=== PATIENT | male | born 1960 | race African-American/Black ===

== ENCOUNTER 2017-04-17 09:53 | Emergency (ER) | payer OTHER ==
[2017-04-17 09:58] VITALS: BP 151/96; PULSE 72; TEMP 97.7; BMI 27.0
[2017-04-17 10:35] LABS: BASOPHIL 0.8 % (0-2.0); MCH 27.6 pg (25.7-33.7); MCHC 34.4 g/dl (32.0-35.9); MEAN CELL VOLUME 80.3 fl (80-96); MEAN PLT VOLUME 7.8 fl (7.5-11.1); NEUTROPHILS 50.7 % (42.8-82.8); PLATELET COUNT 284 K/MM3 (134-434); RDW 14.5 % (11.9-15.9); WHITE BLOOD COUNT 5.7 K/mm3 (4.0-10.0)
[2017-04-17 10:56] LABS: URINE APPEARANCE CLEAR; URINE BILIRUBIN NEGATIVE (NEGATIVE); URINE BLOOD NEGATIVE (NEGATIVE); URINE COLOR STRAW; URINE GLUCOSE (UA) NEGATIVE (NEGATIVE); URINE KETONE NEGATIVE (NEGATIVE); URINE LEUK ESTERASE NEGATIVE (NEGATIVE); URINE NITRITE NEGATIVE (NEGATIVE); URINE PROTEIN NEGATIVE (NEGATIVE); URINE UROBILINOGEN NEGATIVE E.U./dl (0.2-1.0)
--- NOTE | 2017-04-17 10:59 | EKG ---
Test Reason : Blood Pressure : / mmHG Vent. Rate : 072 BPM Atrial Rate : 072 BPM P-R Int : 170 ms QRS Dur : 098 ms QT Int : 380 ms P-R-T Axes : 062 033 035 degrees QTc Int : 416 ms NORMAL SINUS RHYTHM WITH SINUS ARRHYTHMIA POSSIBLE LEFT ATRIAL ENLARGEMENT LEFT VENTRICULAR HYPERTROPHY ABNORMAL ECG WHEN COMPARED WITH ECG OF 24-DEC-2010 10:44, NO SIGNIFICANT CHANGE WAS FOUND Confirmed by MD TREMAYNE, MARY ([id number]) on 04/17/2017 10:59:08 AM Referred By: Confirmed By:MARY CASPER MD
--- NOTE | 2017-04-17 11:07 | PDOC ---
History of Present Illness - General History Source: Patient Exam Limitations: No Limitations - History of Present Illness Initial Comments: 04/17/17 11:20 The patient is a 57 year old male with a significant past medical history of borderline hypertension who presents to the ED with complaints of chest pain for 3 days and a genital rash. The patient reports an onset of intermittent right sided chest pain that lasts for several seconds before residing while he was at work. He reports slight left sided chest pain associated with present symptoms. Patient notes he developed a genital rash on his penis after developing chest pain. He denies penile discharge, pain or swelling. Patient states his last sexual encounter was a month ago with an old friend and he was wearing protection. Patient reports he is not regularly sexually active and admits to not having sex for several months before his last sexual encounter. Denies fevers or chills. Denies shortness of breath or palpitations. Denies nausea, vomiting, or diarrhea. Denies dysuria, frequency, urgency or change in urination. Denies any other symptoms. Social hx: The patient works as a security lead. Denies alcohol, tobacco or drug use. <Autumn Padilla - Last Filed: 04/17/17 11:21> - General History Source: Patient Exam Limitations: No Limitations <Rhett Salgado - Last Filed: 04/17/17 11:41> - General Chief Complaint: Chest Pain Stated Complaint: CHEST PAIN/RASH Time Seen by Provider: 04/17/17 10:11 Past History <Autumn Padilla - Last Filed: 04/17/17 11:21> - Past Medical History HTN: Yes - Surgical History Orthopedic Surgery: Yes (LEFT ROTATOR CUFF SX) - Psycho/Social/Smoking Cessation Hx Anxiety: No Suicidal Ideation: No Smoking Status: No Smoking History: Never smoked Number of Cigarettes Smoked Daily: 0 Hx Alcohol Use: No Drug/Substance Use Hx: No Substance Use Type: None Hx Substance Use Treatment: No <Rhett Salgado - Last Filed: 04/17/17 11:41> - Past Medical History Allergies/Adverse Reactions: Allergies Allergy/AdvReac Type Severity Reaction Status Date / Time No Known Drug Allergies Allergy Verified 04/17/17 09:58 Home Medications: Ambulatory Orders NK [No Known Home Medication] 04/17/17 Review of Systems - Review of Systems Able to Perform ROS?: Yes Comments:: 04/17/17 11:21 GENERAL/CONSTITUTIONAL: No fever or chills. No weakness. HEAD, EYES, EARS, NOSE AND THROAT: No change in vision. No ear pain or discharge. No sore throat. CARDIOVASCULAR: + chest pain. No shortness of breath. RESPIRATORY: No cough, wheezing, or hemoptysis. GASTROINTESTINAL: No nausea, vomiting, diarrhea or constipation. GENITOURINARY: + genital rash. No dysuria, frequency, or change in urination. MUSCULOSKELETAL: No joint or muscle swelling or pain. No neck or back pain. NEUROLOGIC: No headache, vertigo, loss of consciousness, or change in strength/ sensation. ENDOCRINE: No increased thirst. No abnormal weight change. HEMATOLOGIC/LYMPHATIC: No anemia, easy bleeding, or history of blood clots. ALLERGIC/IMMUNOLOGIC: No hives or skin allergy. All Other Systems: Reviewed and Negative <Autumn Padilla - Last Filed: 04/17/17 11:21> *Physical Exam - Vital Signs Last Vital Signs Temp Pulse Resp BP Pulse Ox 97.7 F 72 20 151/96 99 04/17/17 09:55 04/17/17 09:55 04/17/17 09:55 04/17/17 09:55 04/17/17 09:55 - Physical Exam Comments: 04/17/17 11:21 GENERAL: Awake, alert, and fully oriented, in no acute distress HEAD: No signs of trauma EYES: PERRLA, EOMI, sclera anicteric, conjunctiva clear ENT: Auricles normal inspection, hearing grossly normal, nares patent, oropharynx clear without exudates. Moist mucosa NECK: Normal ROM, supple, no lymphadenopathy, JVD, or masses LUNGS: Breath sounds equal, clear to auscultation bilaterally. No wheezes, and no crackles HEART: Regular rate and rhythm, normal S1 and S2, no murmurs, rubs or gallops ABDOMEN: Soft, nontender, normoactive bowel sounds. No guarding, no rebound. No masses GENITOURINARY: + Small painless skin ulceration along the distal tip of the penis no erythema, drainage or testicular tenderness EXTREMITIES: Normal range of motion, no edema. No clubbing or cyanosis. No cords, erythema, or tenderness NEUROLOGICAL: Cranial nerves II through XII grossly intact. Normal speech, normal gait SKIN: Warm, Dry, normal turgor, no lesions noted. <Autumn Padilla - Last Filed: 04/17/17 11:21> - Vital Signs Last Vital Signs Temp Pulse Resp BP Pulse Ox 97.7 F 72 20 151/96 99 04/17/17 09:55 04/17/17 09:55 04/17/17 09:55 04/17/17 09:55 04/17/17 09:55 <Rhett Salgado - Last Filed: 04/17/17 11:41> Heart Score/ECG Review #1 ECG reviewed & interpreted by me at: 10:10 04/17/17 11:04 Vital Signs Temp Pulse Resp BP Pulse Ox 97.7 F 72 20 151/96 99 04/17/17 09:55 04/17/17 09:55 04/17/17 09:55 04/17/17 09:55 04/17/17 09:55 NSR 72, LVH, no std/julia, T wave flat III, normal axis, normal intervals, QTC 416 msec <Rhett Salgado - Last Filed: 04/17/17 11:41> ED Treatment Course - LABORATORY CBC & Chemistry Diagram: 04/17/17 10:10 04/17/17 10:10 - ADDITIONAL ORDERS Additional order review: Laboratory Results 04/17/17 04/17/17 10:10 10:10 Sodium 139 Potassium 4.2 Chloride 100 Carbon Dioxide 30 Anion Gap 9 BUN 7 Creatinine 1.1 Creat Clearance w eGFR > 60 Random Glucose 101 Calcium 8.9 Total Bilirubin 0.8 AST 21 ALT 26 Alkaline Phosphatase 62 Creatine Kinase 387 H Troponin I < 0.02 Total Protein 7.9 Albumin 4.4 Urine Color Straw Urine Appearance Clear Urine pH 7.0 Urine Protein Negative Urine Glucose (UA) Negative Urine Ketones Negative Urine Blood Negative Urine Nitrite Negative Urine Bilirubin Negative Urine Urobilinogen Negative Ur Leukocyte Esterase Negative 04/17/17 10:10 RBC 5.52 MCV 80.3 MCHC 34.4 RDW 14.5 MPV 7.8 Neutrophils % 50.7 Lymphocytes % 36.2 Monocytes % 11.3 H Eosinophils % 1.0 Basophils % 0.8 - RADIOLOGY Radiograph Interpretation: 04/17/17 11:21 RAD/CHEST PA & LAT Impression: No acute pathology. No change of an adverse nature since 11/26/06 Impression: Regan Gibbons <Autumn Padilla - Last Filed: 04/17/17 11:21> - LABORATORY CBC & Chemistry Diagram: 04/17/17 10:10 04/17/17 10:10 - ADDITIONAL ORDERS Additional order review: Laboratory Results 04/17/17 10:10 Urine Color Straw Urine Appearance Clear Urine pH 7.0 Urine Protein Negative Urine Glucose (UA) Negative Urine Ketones Negative Urine Blood Negative Urine Nitrite Negative Urine Bilirubin Negative Urine Urobilinogen Negative Ur Leukocyte Esterase Negative 04/17/17 10:10 RBC 5.52 MCV 80.3 MCHC 34.4 RDW 14.5 MPV 7.8 Neutrophils % 50.7 Lymphocytes % 36.2 Monocytes % 11.3 H Eosinophils % 1.0 Basophils % 0.8 - RADIOLOGY Radiology Studies Ordered: Category Date Time Status CHEST PA & LAT [RAD] Stat Radiology 04/17/17 10:22 Completed <Rhett Salgado - Last Filed: 04/17/17 11:41> Medical Decision Making - Medical Decision Making 04/17/17 11:09 A portion of this note was documented by scribe services under my direction. I have reviewed the details of the note, within reason, and agree with the documentation with the following case summary and management plan written by me. Patient treated in the ED. Nursing notes are reviewed and incorporated into the medical decision-making. Vital signs reviewed. Peripheral IV access obtained by the nurse, laboratory studies are drawn and sent, reviewed and interpreted by myself. Vital Signs Temp Pulse Resp BP Pulse Ox 97.7 F 72 20 151/96 99 04/17/17 09:55 04/17/17 09:55 04/17/17 09:55 04/17/17 09:55 04/17/17 09:55 57-year-old male with past medical history of borderline hypertension presents with 2 complaints. Patient reports 3 days of atypical chest pain. He works as security lead. Stated that he has several seconds of sharp chest pain on the right side that is intermittent. Not exertional. Occurs several times a day. Does not radiate. No associated diaphoresis, nausea, vomiting. Denies smoking history. No blood clots or cardiac family history. Came into the ED for evaluation. The patient's chest pain is atypical for cardiac and I have no suspicion for pulmonary and was him at this time. EKG demonstrates left ventricle hypertrophy but no acute ischemic changes. We'll send one troponin but we'll clear from a myocardial perspective if workup is negative. Patient also notes in last several days of having a small painless, nonpruritic rash/ulcer at the distal tip of his penis. Reports that he sexually active with woman only. He uses condoms her last sexual activity was several months ago. Denies any known history of STDs. Does not appear to be cellulitis at this time. No scrotal involvement. We'll send RPR for syphilis, Chlamydia and gonorrhea, and HIV test, which the patient consents to. We'll send a urinalysis. And have the patient follow-up with the results. 04/17/17 11:38 Chest x-ray reviewed. No acute findings. CBC, BMP 04/17/17 10:10 04/17/17 10:10 CMP Sodium 139 mmol/L (136-145) 04/17/17 10:10 Potassium 4.2 mmol/L (3.5-5.1) 04/17/17 10:10 Chloride 100 mmol/L (98-107) 04/17/17 10:10 Carbon Dioxide 30 mmol/L (21-32) 04/17/17 10:10 Anion Gap 9 (8-16) 04/17/17 10:10 BUN 7 mg/dL (7-18) 04/17/17 10:10 Creatinine 1.1 mg/dL (0.7-1.3) 04/17/17 10:10 Creat Clearance w eGFR > 60 (>60) 04/17/17 10:10 Random Glucose 101 mg/dL (74-106) 04/17/17 10:10 Calcium 8.9 mg/dL (8.5-10.1) 04/17/17 10:10 Total Bilirubin 0.8 mg/dL (0.2-1.0) 04/17/17 10:10 AST 21 U/L (15-37) 04/17/17 10:10 ALT 26 U/L (12-78) 04/17/17 10:10 Alkaline Phosphatase 62 U/L (45-117) 04/17/17 10:10 Creatine Kinase 387 IU/L (39-308) H 04/17/17 10:10 Creatine Kinase Index 1.3 % (0.0-5.0) 04/17/17 10:10 CK-MB (CK-2) 4.938 ng/ml (0.5-3.6) H 04/17/17 10:10 Troponin I < 0.02 ng/ml (0.00-0.05) 04/17/17 10:10 Total Protein 7.9 g/dl (6.4-8.2) 04/17/17 10:10 Albumin 4.4 g/dl (3.4-5.0) 04/17/17 10:10 Urine Test Results Urine Color Straw 04/17/17 10:10 Urine Appearance Clear 04/17/17 10:10 Urine pH 7.0 (5.0-8.0) 04/17/17 10:10 Urine Protein Negative (NEGATIVE) 04/17/17 10:10 Urine Glucose (UA) Negative (NEGATIVE) 04/17/17 10:10 Urine Ketones Negative (NEGATIVE) 04/17/17 10:10 Urine Blood Negative (NEGATIVE) 04/17/17 10:10 Urine Nitrite Negative (NEGATIVE) 04/17/17 10:10 Urine Bilirubin Negative (NEGATIVE) 04/17/17 10:10 Ur Leukocyte Esterase Negative (NEGATIVE) 04/17/17 10:10 HIV test negative. GC/CT, RPR pending. I instructed the patient to call back for gonorrhea, Chlamydia, RPR test. Patient was unsafe agrees with plan. Return precautions given including worsening rash. We'll have the patient follow up with his primary care physician. The patient blood work and chest x-ray are unremarkable. Again, I have very low suspicion that this is a cardiac or pulmonary issue at this time. I discussed the physical exam findings, ancillary test results and final diagnoses with the patient. I answered all of the patient's questions. The patient was satisfied with the care received and felt comfortable with the discharge plan and treatment plan. The patient will call their primary care physician within 24 hours to arrange follow-up and will return to the Emergency Department with any new, persistant or worsening symptoms. <Rhett Salgado - Last Filed: 04/17/17 11:41> *DC/Admit/Observation/Transfer - Attestations Scribe Attestion: 04/17/17 11:21 Documentation prepared by Autumn Padilla, acting as medical record administrator for Rhett Salgado MD <Autumn Padilla - Last Filed: 04/17/17 11:21> - Discharge Dispostion Admit: No <Rhett Salgado - Last Filed: 04/17/17 11:41> Diagnosis at time of Disposition: Penile rash, Atypical chest pain - Discharge Dispostion Disposition: HOME Condition at time of disposition: Stable - Referrals Referrals: Jay Gerber MD [Primary Care Provider] - - Patient Instructions Printed Discharge Instructions: DI for Atypical Chest Pain, DI for Rash Additional Instructions: Take a copy the results of bring to your doctor. For your rash, please call back for the results of RPR, GC and CT. Call back in approximately 48-72 hours. [phone] option 3. Schedule an appointment with your primary care physician.
[2017-04-17 11:08] LABS: ALBUMIN 4.4 g/dl (3.4-5.0); ANION GAP 9 (8-16); BILIRUBIN,TOTAL 0.8 mg/dL (0.2-1.0); CALCIUM 8.9 mg/dL (8.5-10.1); CO2 30 mmol/L (21-32); COCKROFT - GAULT 92.21; CREATININE 1.1 mg/dL (0.7-1.3); GLUCOSE,RANDOM 101 mg/dL (74-106); SGOT/AST 21 U/L (15-37); SGPT/ALT 26 U/L (12-78); TOT PROT 7.9 g/dl (6.4-8.2)
[2017-04-17 11:11] LABS: ALK PHOS 62 U/L (45-117); TROPONIN I < 0.02 ng/ml (0.00-0.05)
[2017-04-17] MEDS ORDERED: IBUPROFEN 600 MG TABLET (FP) PO ONE ×2 (11:17→11:29)
[2017-04-17 11:27] LABS: HIV 1 & 2 AB NEGATIVE; HIV 1 AGp24 NEGATIVE
== END 2017-04-17 11:49 | disposition home or self-care (01) ==
LOC: JER 09:53
DX: R07.89 Other chest pain (principal); N48.5 Ulcer of penis
CPT/HCPCS: 36415; 71020-TC; 80053; 81003; 82550; 82553; 84484; 85025; 86593; 87086; 87389; 87491; 87591; 93005; 93010; 99285-25

== ENCOUNTER 2017-11-15 16:27 | Emergency (ER) | payer OTHER ==
--- NOTE | 2017-11-15 16:36 | PDOC ---
Rapid Medical Evaluation Time Seen by Provider: 11/15/17 16:36 Medical Evaluation: Allergies Allergy/AdvReac Type Severity Reaction Status Date / Time No Known Drug Allergies Allergy Verified 04/17/17 09:58 11/15/17 16:36 Healthy 57 year old male presenting with 2 days of non-traumatic right arm pain and pain in bilateral 5th toes. Alert, oriented, ambulatory. Normal ROM of right arm. V/s notable for HR 100. -To FT for further evaluation.
[2017-11-15 16:40] VITALS: BP 136/83; PULSE 94; TEMP 97.7; BMI 27.3
--- NOTE | 2017-11-15 17:11 | PDOC ---
History of Present Illness - General Chief Complaint: Pain Stated Complaint: ARM PAIN Time Seen by Provider: 11/15/17 16:36 History Source: Patient - History of Present Illness Initial Comments: 11/15/17 17:18 57 year old male with right arm pain x 2 weeks now symptoms improving. patient also c/o b/l 5th toe pain worse with wearing shoes. 11/15/17 17:22 Past History - Past Medical History Allergies/Adverse Reactions: Allergies Allergy/AdvReac Type Severity Reaction Status Date / Time No Known Drug Allergies Allergy Verified 11/15/17 16:36 Home Medications: Ambulatory Orders NK [No Known Home Medication] 04/17/17 COPD: No HTN: Yes - Surgical History Orthopedic Surgery: Yes (LEFT ROTATOR CUFF SX) - Suicide/Smoking/Psychosocial Hx Smoking Status: No Smoking History: Never smoked Number of Cigarettes Smoked Daily: 0 Hx Alcohol Use: No Drug/Substance Use Hx: No Substance Use Type: None Hx Substance Use Treatment: No Review of Systems - Review of Systems Able to Perform ROS?: Yes Is the patient limited [place] proficient: No Musculoskeletal: Yes: Muscle Pain (left arm pain) *Physical Exam - Vital Signs Last Vital Signs Temp Pulse Resp BP Pulse Ox 97.7 F 94 H 19 136/83 98 11/15/17 16:37 11/15/17 16:37 11/15/17 16:37 11/15/17 16:37 11/15/17 16:37 - Physical Exam General Appearance: Yes: Appropriately Dressed Respiratory/Chest: positive: Lungs Clear, Normal Breath Sounds Extremity: positive: Normal Capillary Refill, Normal Inspection, Normal Range of Motion, Other (full rom.+ distal pulse. equal temperature. ) Neurologic: positive: Fully Oriented, Alert, Normal Mood/Affect Progress Note - Progress Note Progress Note: Right arm pain P: ibuprofen *DC/Admit/Observation/Transfer Diagnosis at time of Disposition: Arm pain, right - Discharge Dispostion Disposition: HOME - Referrals Referrals: Jay Gerber MD [Primary Care Provider] - Call tomorrow - Patient Instructions Additional Instructions: take ibuprofen every 6 hours as needed for pain. follow up with your doctor as soon as possible. - Post Discharge Activity Forms/Work/School Notes: Back to Work
[2017-11-15] MEDS ORDERED: IBUPROFEN 600 MG TABLET (FP) PO ONE ×2 (17:19→17:21)
== END 2017-11-15 17:31 | disposition home or self-care (01) ==
LOC: JERFT 16:27
DX: M79.601 Pain in right arm (principal); I10 Essential (primary) hypertension
CPT/HCPCS: 99281-25